=== PATIENT | male | born 1965 | race Caucasian/White ===

== ENCOUNTER → 2023-06-28 06:40 | Day surgery (SDC) | payer OTHER, SELFPAY | LOC: GI 06:40 | PROVIDERS: ATTENDING PHYSICIAN Internal Medicine | DX: Z12.11 Encounter for screening for malignant neoplasm of colon (principal); K57.30 Diverticulosis of large intestine without perforation or abscess without bleeding; K64.8 Other hemorrhoids; K64.4 Residual hemorrhoidal skin tags | CPT/HCPCS: G0121 ==